=== PATIENT | female | born 1980 | race Caucasian/White ===

== ENCOUNTER 2016-08-30 08:17 | Observation (INO) | payer OTHER ==
[~2016-08-30] VITALS: Ht 167.6 cm; Wt 87.1 kg
[~2016-08-30 08:17] MED LIST: BUPIVACAINE-EPI 0.25%-1:200000 MPF 30 ML VIAL. ONE; CETI10TA22 PO; CHOL500016 PO; ESTROGENS, CONJ VAGINAL CREAM 30GM TUBE. ONE; IV RINGERS,LACTATED 1000ML 1,000 ML IV SCH; LIDOCAINE 1% 1 ML SYRINGE. ID PRN; METF500T4 PO; MORPHINE SULFATE 2 MG/ML DISP.SYRIN. IV PRN; MULT1TAB52 PO; ONDANSETRON PF 4 MG/2 ML VIAL. IV PRN; PROCHLORPERAZINE 10 MG/2 ML VIAL. IV PRN; TRIA10.8 NS; fentaNYL PF VIAL 100 MCG/2 ML VIAL IV PRN
[2016-08-30] MEDS ORDERED: DEXAMETHASONE SOD PHOS 20 MG/5 ML VIAL. ONE (08:37)
[2016-08-30] MEDS ORDERED: ONDANSETRON PF 4 MG/2 ML VIAL. ONE (08:37)
[2016-08-30] MEDS ORDERED: LIDOCAINE 2% PF Vial for OR 5 ML VIAL. ONE (08:37)
[2016-08-30] MEDS ORDERED: FAMOTIDINE 20 MG/2 ML VIAL ONE (08:37)
[2016-08-30] MEDS ORDERED: PROPOFOL 20 ML IV ONE (08:37)
[2016-08-30] MEDS ORDERED: fentaNYL PF VIAL 100 MCG/2 ML VIAL ONE ×2 (08:40→10:18)
[2016-08-30] MEDS ORDERED: ROCURONIUM 50 MG/5 ML VIAL. ONE (08:40)
[2016-08-30] MEDS ORDERED: MIDAZOLAM HCL/PF 2 MG/2 ML VIAL. ONE (08:40)
[2016-08-30 08:49] LABS: NEG OBC UR NEG; POS OBC UR POS
[2016-08-30] MEDS ORDERED: ESTRADIOL WEEKLY 0.1 MG PATCH. TD SCH (09:00)
[2016-08-30] MEDS ORDERED: SCOPOLAMINE 1.5MG PATCH. TD SCH (09:00)
[2016-08-30] MEDS ORDERED: GLYCOPYRROLATE 1 MG/5 ML VIAL. ONE ×2 (09:03→11:14)
[2016-08-30] MEDS ORDERED: NEOSTIGMINE METHYLSULFATE 5 MG/5 ML SYRINGE. ONE (09:33)
[2016-08-30] MEDS ORDERED: KETOROLAC 60 MG/2 ML INJ FOR OR. ONE (10:18)
[2016-08-30] MEDS ORDERED: DESFLURANE 61 TO 120 MINUTES IH ONE (11:14)
--- NOTE | 2016-08-30 12:12 | PDOC ---
BRIEF OPERATIVE NOTE Date: August 30, 2016 Pre-Op Diagnosis Pelvic pain, complex ovarian cyst Post-Op Diagnosis same plus stage 3 endometriosis pelvic adhesive disease Procedure Performed LAVH, BSO, adhesiolysis, then Dr. Guerrero performed a rigid sigmoidoscope Surgeon Dr. Jannie Suárez, Dr. Argentina Hawley, Dr. Gerardo Guerrero Anesthesiologist Dr. Calderon Anesthesia Type: General Blood Loss 150cc IV Fluid see anesthesia records Urine Output 220cc clear via rivera Specimens Obtained cervix, uterus, bilateral tubes and ovaries Findings enlarged cystic left ovary stuck to left sidewall, right ovary stuck, endometriosis on bilateral adnexa, uterus, anterior bladder, scarred posterior cul de sac with thickened tissue on posterior cervix, left chocolate cyst and blood in cul de sac upon entry before operating Complications none Additional Remarks [id number] JANNIE SUÁREZ MD August 30, 2016 12:12
[2016-08-30] MEDS ORDERED: METOCLOPRAMIDE HCL 10 MG/2 ML VIAL. IV PRN (12:15)
[2016-08-30] MEDS ORDERED: HYDROcodone/APAP 5/325MG 1 TAB TABLET PO PRN (12:15)
[2016-08-30] MEDS ORDERED: NALOXONE 0.4 MG/ML VIAL. IV PRN (12:15)
[2016-08-30] MEDS ORDERED: MORPHINE SULFATE 2 MG/ML DISP.SYRIN. IV PRN (12:15)
[2016-08-30] MEDS ORDERED: MAG HYDROX/ALUMINUM HYD/SIMETH 30 ML ORAL.SUSP PO PRN (12:15)
[2016-08-30] MEDS ORDERED: MAGNESIUM HYDROXIDE 2,400 MG/30 ML ORAL.SUSP. PO PRN (12:15)
[2016-08-30] MEDS ORDERED: SIMETHICONE 80 MG TAB.CHEW PO PRN (12:15)
[2016-08-30] MEDS ORDERED: ONDANSETRON PF 4 MG/2 ML VIAL. IV PRN (12:15)
[2016-08-30] MEDS ORDERED: diphenhydrAMINE 50 MG/ML VIAL IV PRN (12:15)
[2016-08-30] MEDS ORDERED: LACTULOSE 20 GM/30 ML SOLUTION. PO PRN (12:15)
[2016-08-30] MEDS ORDERED: 0.9 % SODIUM CHLORIDE 10 ML DISP.SYRIN. IV PRN (12:15)
[2016-08-30] MEDS ORDERED: ZOLPIDEM 5 MG TABLET. PO PRN (12:15)
[2016-08-30] MEDS ORDERED: CALCIUM CARBONATE 500 MG TAB.CHEW PO PRN (12:15)
[2016-08-30] MEDS ORDERED: diphenhydrAMINE HCL 25 MG CAPSULE PO PRN (12:15)
[2016-08-30] MEDS: fentaNYL PF VIAL 100 MCG/2 ML VIAL IV PRN ×2 (12:32→12:37)
[2016-08-30] MEDS: HYDROmorphone 2 MG/ML VIAL IV PRN ×2 (12:48→13:08)
[2016-08-30 13:30] VITALS: BP 117/72
[2016-08-30 13:50] VITALS: BP 112/69
[2016-08-30 14:05] VITALS: BP 110/67
[2016-08-30] MEDS: KETOROLAC TROMETHAMINE 30 MG/ML INJ. IV PRN ×2 (14:10→20:10)
[2016-08-30 15:00] VITALS: BP 108/64
[2016-08-30 16:00] VITALS: BP 102/66
--- NOTE | 2016-08-30 17:52 | OP ---
DATE OF SURGERY: 08/30/2016 REFERRING PHYSICIANS: Dr. Yao Arzola. Thank you for the consult. PREOPERATIVE DIAGNOSIS: Endometriosis. PROCEDURES: Rigid sigmoidoscopy. This is a 36-year-old female undergoing a laparoscopic vaginal hysterectomy by Dr. Yao Arzola and Dr. Hawley. During the procedure, it was noted to have some concerns for injury to the mesentery of the sigmoid colon secondary to extensive scar tissue. Dr. Arzola was kind enough to request assistance in the Operating Theater. Upon arrival, the patient was very stable and doing well. From an Anesthesia standpoint, laparoscopically, a small rent in the mesentery of the sigmoid colon was noted. No obvious colonic injury was noted. However, given the concern for possible colonic injury, a rigid sigmoidoscopy with air blown across the area of concern would be felt to be appropriate. Subsequently, a rigid sigmoidoscope was introduced via the rectum. The rectum had no evidence of masses or perianal concerns. Air was blown across the anastomosis with fluid in the pelvis. There was no evidence of air bubbles. The rigid sigmoidoscopy demonstrated no evidence of mucosal injury or abnormality going up to and beyond the area of concern. As such, it was felt rectal or colon injury was extremely unlikely. The rigid sigmoidoscope was removed. Dr. Arzola continued appropriate care. Thank you for allowing me participation in the care of this patient. MARY KATE VELIZ MD DR: MARCELLUS/gigi JOB#: [id number] / [id number] YAO Young MD
[2016-08-30] MEDS: oxyCODONE/APAP 5/325 1 TAB TABLET PO PRN (18:22)
--- NOTE | 2016-08-30 21:22 | OP ---
DATE OF SURGERY: 08/30/2016 PREOPERATIVE DIAGNOSES: Pelvic pain and known enlarged 6-7 cm complex ovarian cyst. POSTOPERATIVE DIAGNOSES: Pelvic pain and known enlarged 6-7 cm complex ovarian cyst. Stage 3 endometriosis with scar tissue and pelvic adhesive disease involving both ovaries to the sidewall and the posterior cul-de-sac obliterated with the descending colon. SURGEON: Yao Arzola M.D., Dr. Argentina Hawley and Dr. Gerardo Guerrero. ANESTHESIOLOGIST: Dr. Salmon. ANESTHESIA: General. IV FLUIDS: Please see anesthesia records. ESTIMATED BLOOD LOSS: 150 mL. URINE OUTPUT: 220 mL clear via Saunders catheter. SPECIMEN REMOVED: Cervix, uterus, bilateral tubes and ovaries. FINDINGS: She had an enlarged cystic left ovary stuck to the left sidewall. The right ovary was also stuck. The left ovary looked like it was chocolate cyst. She had endometriosis on her bilateral adnexa. The uterus itself, the anterior bladder mucosa and the posterior cul-de-sac was completely scarred with thickened tissue. It was so thickened that it was unable to tell if the descending ____ and sigmoid colon was stuck to the posterior uterus. There were no complications though at the very end after peeling off the bowel, there was a questionable little tear in the superficial descending rectosigmoid area that was peeled off the posterior uterus, so we did ask Dr. Guerrero, general surgeon to come in and examine this, just to be sure. He put a rigid sigmoidoscope in the rectum, blew air bubbles in with water to make sure it did not communicate also was able to look in the rectum. When I put my suction log buncher above on and in the hole and he was looking below. He did not see ____ air filling and you could watch the colon with air and no bubbles came through and the water was covering that opening. So it was likely just a very superficial tear. When we were pulling the bowel down and scored in the back of the uterus and pull and peeling it down, so we could make our posterior colpotomy, which is the very superficial tear with all the adhesions and endometriosis. DESCRIPTION OF THE PROCEDURE: This patient was taken to the operating room where general anesthesia was placed. The patient was placed in dorsal lithotomy position in [facility]. The patient's abdomen and vagina were prepped and draped in the normal sterile fashion. A Saunders catheter had previously been inserted under sterile technique. At this point, after performing a timeout, a bivalve speculum was placed in the patient's vagina. A single tooth tenaculum was used to grasp the anterior lip of the cervix. A 10 mL of 0.25% Marcaine with epinephrine was used to circumferentially inject around the cervix for both hemodissection and hemostatic purposes later. The ValWorldcoo uterine manipulator was placed through the endocervical os, locked on the single tooth tenaculum and the bivalve speculum was then removed. Top gloves were discarded and changed. Attention was then turned to the abdomen where a small supraumbilical skin incision was made with the scalpel. A curved Kya was used to dissect through the subcuticular layer to the fascia. The 5 mm Visiport was used to directly enter the abdominal cavity. Opening patient pressure was 3-4 mmHg. Carbon dioxide gas was used to then appropriately insufflate the abdominal cavity to maintain a pressure of 15 mmHg. The patient was placed in Trendelenburg position. At this point, right and left lower quadrant ports were placed under direct visualization transilluminating the abdomen making very small incisions and a 5 mm disposable Ethicon port was placed without difficulty. Upon entry, we did see the endometriosis as described above. Initially, we did get the suction log buncher and suck out the posterior cul-de-sac with full of bloody fluid upon entry before operating and then with the [place] and using the suction log buncher bluntly, we were able to peel up and pull up those ovaries off the sidewall. The left one did appear to be draining chocolate cyst and that was the enlarged complex cyst that the CAT scan and sonogram had indicated with her pain. She had endometriosis again on the uterus, bilateral adnexa, scarring through the whole posterior cul-de-sac, so we started with the left round ligament. It was cauterized and cut in a stepwise fashion creating a window in the mesosalpinx, creating the bladder flap sharply, elevating the left tube and ovary, it was very enlarged, going low and finding the ureter, staying high on the ovary crossing the IP ligament again cauterizing and cutting with the LigaSure Advance, going down and obtaining the uterine vessels on this side. However, I did not want to go posteriorly, as it was thickened and I could not tell where the colon was, so we went ahead and did the right side. We got the right round ligament, going down and further met that bladder flap anteriorly, elevated the right tube and ovary, which was smaller and it was now free as well. It was initially stuck as well and had to be freed before we started and then the ureter was seen coursing below. We stayed high on the IP ligament, cauterizing and cutting it as well and obtaining the uterine vessels on this side. This side was easier to see. The bladder was down. We were able to cross contralaterally to hug the cervix and go down on this side. In the back, we scored the cervix ____ peeling off the adhesions of the posterior cervix to make sure it was clear before when we did the posterior colpotomy and making sure that the descending colon and rectum were down and off that posterior cervix. Once this was done, we did take more bites on the left side. Once it was down and free ____ middle and patient's left side. So once this was taken off, once we were down to the uterosacrals on both sides, all instruments were removed from the abdomen, attention was turned vaginally. The single tooth and Valtchev were removed. The legs were elevated. The short weighted speculum was placed in the patient's vagina. Thyroid Andrea clamps were placed on the anterior and posterior lips of the cervix respectively. A scalpel was used to make a circumferential incision in the cervix. The anterior mucosa was gently pushed up with the suction log buncher and using the scalpel, the anterior cul-de-sac was sharply entered and the retractor jaqueline Rdz was placed in here. The cervix was elevated. The posterior cul-de-sac was sharply entered high on the cervix and a #0 Vicryl stitch was used to secure the posterior peritoneum to the vaginal cuff. It was tagged with a curved Kya clamp. The needle was cut and passed off and the short weighted speculum was removed and replaced with the long weighted Edgar speculum. Actually the left side was entirely free. There was no pedicle left at all. The right side, uterosacrals were doubly clamped with curved Heaneys, cut with long Fry scissors and suture ligated x 2 with 0 Vicryl and the second one was taken through the vaginal cuff, secured the uterosacral ligament to the vaginal cuff and was tagged with a straight Kya clamp. The needle was cut and passed off. The remaining pedicle on the right was delineated with a right angle clamp, was taken around it and the vaginal LigaSure Max was used to cauterize this remaining pedicle. Cervix, uterus, right tube and ovary were delivered and during the process of trying to take down the adhesions on the left side and posteriorly when we were scarring it and taking it down the left ovary was large and in the way, so we did amputate that off and placed it in the cul-de-sac, the left tube and ovary and this was taken out as well. Once the uterus, cervix, right tube and ovary were delivered, the left tube and ovary were sitting in the posterior cul-de-sac and these were easily delivered and passed off for permanent pathology. A Burlisher was placed from the little tiny bleeder on the right side and the vaginal LigaSure Max was taken and cauterized this area behind it without difficulty and then going over the uterosacral pedicle on the right side as well. Once this was done, a sponge stick was used to examine all the pedicles and they appeared hemostatic. Then, the long Edgar was removed and replaced with a short weighted speculum. ____ and long Allis were used to cotton picker operator the anterior bladder mucosa, 2-0 Vicryl was taken through this. The left uterosacral ligament, posterior peritoneum and right uterosacral ligament, thus closing the peritoneum in a pursestring like fashion. Once this was done, the right uterosacral tag was cut, the left one was never tagged because it was already free and the vaginal cuff was closed in an anterior to posterior running locked fashion with a full piece of 2-0 Vicryl with excellent hemostatic result. All gloves were discarded and changed and attention was turned back above for a second look. Upon irrigation, there was absolutely no bleeding. Everything was hemostatic. There was a small 1-cm tear just to the left of the descending colon going into the rectal area. It did look to be superficial, but I could not tell if it went through and through. Dr. Hawley did try to go vaginally and do a rectal exam to see if we could see her with our finger, but it was higher up and it was on that left side where the adhesions were peeled off the posterior uterus from all the scar tissue from the ____, so we did ask Dr. Guerrero, general surgeon, to come in for a consultation just to make sure it was okay before we closed. He looked and decided to do a rigid sigmoidoscope and this dictation will be per him, but in a nutshell he did put air in it and made sure that no water bubbled up and then looked in as well, but please see his full dictation. ASSESSMENT: To the best of our ability proved that there was no tear and we irrigated again and everything was hemostatic. We did place Tisseel over the cuff before he came in with excellent results. Upon waiting 10-15 minutes for him to get in and get gowned and gloved and ready, there was absolutely no bleeding. The cul-de-sac was dry. The right and left pericolic gutters were dry. Right upper quadrant where liver was looked good, so once he was done, then we adequately checked that small tear. We took the right and left lower quadrant ports out under direct visualization. These two were hemostatic. Gas was released from the umbilical port and all three port sites were closed with 4-0 nylon at the level of the skin and injected with 10 mL of local. YAO ARZOLA MD DR: SHIRA/gigi JOB#: [id number] / [id number]
[2016-08-30 22:51] VITALS: BP 112/72
[2016-08-31] MEDS: KETOROLAC TROMETHAMINE 30 MG/ML INJ. IV PRN ×2 (02:57→08:44)
[2016-08-31 04:38] LABS: CALCIUM 8.5 mg/dL (8.5-10.1); CREATININE 0.7 mg/dL (0.6-1.0); GFR 93.6; POTASSIUM 3.8 mmol/L (3.5-5.1)
--- NOTE | 2016-08-31 08:32 | PDOC ---
SURGICAL PROGRESS NOTE Subjective Doing well without complaints. Voiding well, minimal pain, tolerating regular diet and wants to go home. Vital Signs Vital Signs Date Time Temp Pulse Resp B/P (MAP) Pulse Ox O2 Delivery O2 Flow Rate FiO2 08/30/16 22:51 98.2 88 18 112/72 (85) 98.2 08/30/16 14:05 99 Room Air 08/30/16 12:16 10 I&O Intake and Output 08/31/16 07:00 Intake Total 3290 ml Output Total 1125 ml Balance 2165 ml Intake Oral 1640 ml IV Total 1650 ml Output Urine Total 975 ml Estimated Blood Loss 150 ml PATIENT HAS A GOFF: No General: Alert, Oriented X3, Cooperative, No acute distress HEENT: Atraumatic Heart: Regular rate Abdomen: Soft, No tenderness, No masses Extremities: No clubbing, No cyanosis, No edema, No tenderness/swelling Skin: No rashes, No breakdown Neuro: Normal speech Psych/Mental Status: Mental status NL, Mood NL Labs Laboratory Tests Test 08/30/16 08:30 08/31/16 03:45 Urine Test Negative (NEG) Hematocrit 35.5 % (36.0-47.0) Sodium Level 132 mmol/L (136-145) Potassium Level 3.8 mmol/L (3.5-5.1) Chloride Level 98 mmol/L (98-107) Carbon Dioxide Level 26 mmol/L (21-32) Anion Gap 8 (6-14) Blood Urea Nitrogen 6 mg/dL (7-20) Creatinine 0.7 mg/dL (0.6-1.0) Estimated GFR (Cockcroft-Gault) 93.6 Glucose Level 96 mg/dL (70-99) Calcium Level 8.5 mg/dL (8.5-10.1) Laboratory Tests Test 08/30/16 08:30 08/31/16 03:45 Urine Test Negative (NEG) Hematocrit 35.5 % (36.0-47.0) Sodium Level 132 mmol/L (136-145) Potassium Level 3.8 mmol/L (3.5-5.1) Chloride Level 98 mmol/L (98-107) Carbon Dioxide Level 26 mmol/L (21-32) Anion Gap 8 (6-14) Blood Urea Nitrogen 6 mg/dL (7-20) Creatinine 0.7 mg/dL (0.6-1.0) Estimated GFR (Cockcroft-Gault) 93.6 Glucose Level 96 mg/dL (70-99) Calcium Level 8.5 mg/dL (8.5-10.1) Cardiovascular: No pertinent hx Pulmonary: No pertinent hx Heme/Onc: No pertinent hx Problem List POD #1 s/p LAVH/BSO with adhesiolysis and rigid sigmoidoscopy Routine care d/c to home today NPV x 6 weeks light/limited activity x [address] while on narcotics keep scheduled follow up with me in one week has percocet script at home filled can take OTC ibuprofen as needed also call or return sooner for any other questions or concerns not limited to but including pain unrelieved with pain pills, increased or unexplained vaginal bleeding or T>100.4 Problems: YAO SUÁREZ MD August 31, 2016 08:32
--- NOTE | 2016-08-31 08:35 | PDOC3 ---
Discharge Summary Visit Information Date of Admission: August 30, 2016 Date of Discharge: August 31, 2016 Final Diagnosis endometriosis, pelvic pain, complex left ovarian cyst Brief Hospital Course Allergies Allergies Coded Allergies Type Severity Reaction Last Updated Verified Sulfa (Sulfonamide Antibiotics) Allergy Intermediate Rash 08/30/16 Yes levofloxacin Allergy Intermediate 08/30/16 Yes peanut Allergy Intermediate Rash 08/30/16 Yes walnut Allergy Intermediate 08/30/16 Yes Yeast Allergy Unknown 08/30/16 Yes mushroom Allergy Unknown 08/30/16 Yes perfume Allergy Unknown 08/30/16 Yes diphenhydramine Adverse Reaction Mild 08/30/16 Yes Vital Signs Vital Signs Date Time Temp Pulse Resp B/P (MAP) Pulse Ox O2 Delivery O2 Flow Rate FiO2 08/30/16 22:51 98.2 88 18 112/72 (85) 98.2 08/30/16 14:05 99 Room Air 08/30/16 12:16 10 Lab Results Laboratory Tests Test 08/30/16 08:30 08/31/16 03:45 Urine Test Negative (NEG) Hematocrit 35.5 % (36.0-47.0) Sodium Level 132 mmol/L (136-145) Potassium Level 3.8 mmol/L (3.5-5.1) Chloride Level 98 mmol/L (98-107) Carbon Dioxide Level 26 mmol/L (21-32) Anion Gap 8 (6-14) Blood Urea Nitrogen 6 mg/dL (7-20) Creatinine 0.7 mg/dL (0.6-1.0) Estimated GFR (Cockcroft-Gault) 93.6 Glucose Level 96 mg/dL (70-99) Calcium Level 8.5 mg/dL (8.5-10.1) Laboratory Tests Test 08/31/16 03:45 Hematocrit 35.5 % (36.0-47.0) Sodium Level 132 mmol/L (136-145) Potassium Level 3.8 mmol/L (3.5-5.1) Chloride Level 98 mmol/L (98-107) Carbon Dioxide Level 26 mmol/L (21-32) Anion Gap 8 (6-14) Blood Urea Nitrogen 6 mg/dL (7-20) Creatinine 0.7 mg/dL (0.6-1.0) Estimated GFR (Cockcroft-Gault) 93.6 Glucose Level 96 mg/dL (70-99) Calcium Level 8.5 mg/dL (8.5-10.1) Brief Hospital Course Ms. Morales is a 36 old female who presented with pelvic pain, complex enlarged left ovarian cyst. She underwent LAVH/BSO and was found to have stage 3 endometriosis with pelvic adhesive disease. Due to adhesions of desc colon to posterior uterus and small, appeared to be superficial lac but could not be sure , did have Dr. Guerrero consulted intraoperatively to look at the bowel. He performed a rigid sigmoidoscope and could not find any trauma to the bowel. She has had an unremarkable postoperative course. She is wanting to go home today. Discharge Information Condition at Discharge: Improved Follow Up: Weeks Disposition/Orders: D/C to Home Scheduled Cetirizine Hcl (Zyrtec), 10 MG PO DAILY, (Reported) Cholecalciferol (Vitamin D3) (Vitamin D3), 5,000 UNIT PO DAILY, (Reported) Metformin Hcl (Metformin Hcl), 500 MG PO BIDWMEALS, (Reported) Multivitamin (Multivitamins), 1 EACH PO DAILY, (Reported) Triamcinolone Acetonide (Nasacort), 2 SPRAY NS DAILY, (Reported) Patient Instructions Patient Instructions POD #1 s/p LAVH/BSO with adhesiolysis and rigid sigmoidoscopy Routine care d/c to home today NPV x 6 weeks light/limited activity x [address] while on narcotics keep scheduled follow up with me in one week has percocet script at home filled can take OTC ibuprofen as needed also call or return sooner for any other questions or concerns not limited to but including pain unrelieved with pain pills, increased or unexplained vaginal bleeding or T>100.4 YAO SUÁREZ MD August 31, 2016 08:35
[2016-08-31] MEDS ORDERED: CETIRIZINE HCL 10 MG TABLET. PO SCH (09:00)
[2016-08-31 09:30] VITALS: BP 121/76
[2016-08-31] MEDS: oxyCODONE/APAP 5/325 1 TAB TABLET PO PRN (09:37)
== END 2016-08-31 09:55 | disposition home or self-care (01) ==
LOC: SURG 08:17 → 3 NORTH 12:15
PROVIDERS: ADMIT Obstetrics & Gynecology; ATTEND Obstetrics & Gynecology
DX: N83.202 Unspecified ovarian cyst, left side (principal); N80.3 Endometriosis of pelvic peritoneum; N80.1 Endometriosis of ovary; N73.6 Female pelvic peritoneal adhesions (postinfective); K66.0 Peritoneal adhesions (postprocedural) (postinfection)
CPT/HCPCS: 36415; 45330; 80048; 81025; 85014; 86850; 86900; 86901; 96374; 96376; C1769; G0378; G0379; J0694; J0780; J1100; J1170; J1885; J2250; J2405; J2704; J2710; J3010; J3490; J7030; J7120; S0028